=== PATIENT | male | born 1945 | race Caucasian/White ===

== ENCOUNTER → 2018-05-18 | Outpatient (CLI) | payer MEDICARE, OTHER ==
[~2018-05-18] MED LIST: ATEN50TA PO; BENZ1TAB10 PO; CITA-106 PO; ENAL10TA2 PO; OLAN10TA3 PO; RANI150T7 PO
[2018-05-21 17:26] LABS: CHOL/HDL RATIO 3.2 (4.2-7.3); HEMOGLOBIN A1C 5.4 % (4.5-6.2)
== END | disposition home or self-care (01) ==
LOC: LABMN 13:00
PROVIDERS: ATTEND Psychiatry & Neurology Psychiatry
DX: F20.9 Schizophrenia, unspecified (principal); Z79.899 Other long term (current) drug therapy
CPT/HCPCS: 82947; 83036